=== PATIENT | female | born 1945 | race Caucasian/White ===

== ENCOUNTER 2017-10-21 21:00 | Emergency (ER) | payer OTHER ==
[~2017-10-21] VITALS: Ht 160 cm; Wt 81.6 kg
[~2017-10-21 21:00] MED LIST: ANTI-GAS 8080 MG PO; BET80 PO; CAR60 PO; COZ25 PO; FOLIC ACID1 MG PO; IBU800 M1 PO; LISINOPRIL2.5 MG; NORVASC2.5 MG; OMEPRAZOLE40 M1 PO; SLOFE PO
[2017-10-21 21:32] VITALS: Ht 160 cm; Wt 81.6 kg
[2017-10-21 22:34] VITALS: BP 126/68
== END 2017-10-21 22:34 | disposition home or self-care (01) ==
LOC: ED 21:00
DX: S41.101A Unspecified open wound of right upper arm, initial encounter (principal); X58.XXXA Exposure to other specified factors, initial encounter; Y93.89 Activity, other specified; Y92.89 Other specified places as the place of occurrence of the external cause; Y99.8 Other external cause status

== ENCOUNTER 2017-10-26 16:53 | Observation (INO) | payer OTHER ==
[~2017-10-26] VITALS: Ht 160 cm; Wt 83.5 kg
[2017-10-26 17:12] VITALS: Ht 160 cm; Wt 83.5 kg
[2017-10-26 18:07] LABS: BASOPHIL % 0.3 % (0-2); PLATELET COUNT 262 x10^3mcL (130-400); RED CELL DISTRIBUTION WIDTH 14.2 % (11.5-14.5)
[2017-10-26 18:20] LABS: BILIRUBIN TOTAL 0.37 mg/dL (0.20-1.00); CALCIUM 8.8 mg/dL (8.5-10.1); CARBON DIOXIDE 29.5 mmol/L (21-32); CREATININE SERUM 1.5 mg/dL (0.6-1.0); TOTAL PROTEIN, SERUM 6.2 g/dL (6.4-8.2)
[2017-10-26 18:22] LABS: ALBUMIN 3.3 g/dL (3.4-5.0); POTASSIUM SERUM 2.9 mmol/L (3.5-5.1)
[2017-10-26 23:13] VITALS: BP 123/51
[2017-10-27 05:52] VITALS: BP 110/49
[2017-10-27 06:45] LABS: BASOPHIL % 0.6 % (0-2); PLATELET COUNT 222 x10^3mcL (130-400); RED CELL DISTRIBUTION WIDTH 14.2 % (11.5-14.5)
[2017-10-27 06:50] LABS: CALCIUM 8.6 mg/dL (8.5-10.1); CARBON DIOXIDE 31.7 mmol/L (21-32); POTASSIUM SERUM 3.6 mmol/L (3.5-5.1)
[2017-10-27 09:13] VITALS: BP 127/68
[2017-10-27 17:40] VITALS: BP 99/49
[2017-10-27 20:42] VITALS: BP 118/66
[2017-10-28 05:41] VITALS: BP 97/55
[2017-10-28 07:22] LABS: BASOPHIL % 0.6 % (0-2); PLATELET COUNT 243 x10^3mcL (130-400)
[2017-10-28 07:23] LABS: CALCIUM 8.5 mg/dL (8.5-10.1); CARBON DIOXIDE 29.8 mmol/L (21-32); CHLORIDE SERUM 96 mmol/L (98-107); CREATININE SERUM 0.9 mg/dL (0.6-1.0); GFR1 > 60 mL/min; GLUCOSE SERUM 102 mg/dL (74-106); MAGNESIUM 1.6 mg/dL (1.8-2.4); POTASSIUM SERUM 3.9 mmol/L (3.5-5.1); SODIUM SERUM 131 mmol/L (136-145)
[2017-10-28 07:26] LABS: RED CELL DISTRIBUTION WIDTH 14.8 % (11.5-14.5)
[2017-10-28 09:49] VITALS: BP 110/51
[2017-10-28 11:26] VITALS: BP 110/51
[2017-10-28 11:41] VITALS: BP 110/51
== END 2017-10-28 12:54 | disposition home or self-care (01) | DRG 554 ==
LOC: ED 16:53 → MU 19:35
PROVIDERS: Emergency Medicine; Internal Medicine; Internal Medicine Pulmonary Disease
DX: M25.061 Hemarthrosis, right knee (principal); D68.32 Hemorrhagic disorder due to extrinsic circulating anticoagulants; T45.515A Adverse effect of anticoagulants, initial encounter; I48.91 Unspecified atrial fibrillation; I10 Essential (primary) hypertension; E78.00 Pure hypercholesterolemia, unspecified; Z79.01 Long term (current) use of anticoagulants; Y92.009 Unspecified place in unspecified non-institutional (private) residence as the place of occurrence of the external cause
CPT/HCPCS: G0378

== ENCOUNTER 2020-01-07 11:47 | Emergency (ER) | payer OTHER ==
[~2020-01-07] VITALS: Ht 165.1 cm; Wt 80.3 kg
[2020-01-07 12:01] VITALS: Ht 165.1 cm; Wt 80.3 kg
[2020-01-07 12:31] LABS: BASOPHIL % 0.3 % (0-2)
[2020-01-07 12:39] LABS: ALKALINE PHOSPHATASE 99 U/L (46-116); ALT/SGPT 49 U/L (14-59); AMYLASE 42 U/L (25-115); AST/SGOT 51 U/L (15-37); BILIRUBIN TOTAL 0.33 mg/dL (0.20-1.00); CARBON DIOXIDE 25.5 mmol/L (21-32); CHLORIDE SERUM 93 mmol/L (98-107); CREATININE SERUM 1.7 mg/dL (0.6-1.0); GLUCOSE SERUM 100 mg/dL (74-106); LIPASE 79 IU/L (73-393); SODIUM SERUM 130 mmol/L (136-145); TOTAL PROTEIN, SERUM 6.9 g/dL (6.4-8.2)
[2020-01-07 12:42] LABS: PLATELET COUNT 411 x10^3mcL (130-400); RED CELL DISTRIBUTION WIDTH 15.3 % (11.5-14.5)
[2020-01-07 12:59] LABS: ALBUMIN 3.3 g/dL (3.4-5.0); POTASSIUM SERUM 2.9 mmol/L (3.5-5.1)
[2020-01-07 13:44] VITALS: BP 102/50
== END 2020-01-07 14:12 | disposition home or self-care (01) ==
LOC: ED 11:47
PROVIDERS: Emergency Medicine
DX: K80.50 Calculus of bile duct without cholangitis or cholecystitis without obstruction (principal); E87.6 Hypokalemia; I10 Essential (primary) hypertension; E78.00 Pure hypercholesterolemia, unspecified
CPT/HCPCS: J1885; Q0092